=== PATIENT | female | born 2005 | race African-American/Black ===

== ENCOUNTER 2025-06-01 08:04 | Emergency (ER) | payer OTHER ==
[~2025-06-01] VITALS: Ht 157.5 cm; Wt 64.0 kg
[2025-06-01 08:11] VITALS: BP 124/67; TEMP 36.7; O2SAT 99
[2025-06-01 08:14] VITALS: PULSE 83; RESP 16; O2SAT 98
== END 2025-06-01 08:51 | disposition home or self-care (01) ==
LOC: ER 08:04
DX: L74.0 Miliaria rubra (principal); Z88.0 Allergy status to penicillin; Z79.899 Other long term (current) drug therapy
CPT/HCPCS: 99282

== ENCOUNTER 2025-06-24 16:13 | Emergency (ER) | payer SELFPAY ==
[~2025-06-24] VITALS: Ht 162.6 cm; Wt 69.6 kg
[2025-06-24 16:20] VITALS: O2SAT 100
[2025-06-24] MEDS ORDERED: FLUC200T51 MT (19:29)
[2025-06-24] MEDS ORDERED: METR70GE27 VG (19:29)
[2025-06-24] MEDS ORDERED: KETO15CR2 TP (19:29)
[2025-06-24 20:03] VITALS: BP 122/69; PULSE 66; RESP 14; TEMP 36.5; O2SAT 98
== END 2025-06-24 20:05 | disposition home or self-care (01) ==
LOC: ER 16:13
DX: N76.0 Acute vaginitis (principal); B35.4 Tinea corporis; Z90.721 Acquired absence of ovaries, unilateral; Z98.890 Other specified postprocedural states; Z88.0 Allergy status to penicillin
CPT/HCPCS: 81025; 87491; 87591; 99283